=== PATIENT | female | born 1980 | race Caucasian/White ===

== ENCOUNTER 2017-02-28 06:16 | Day surgery (SDC) | payer BC ==
[2017-02-25 12:23] VITALS: BMI 34.0
[2017-02-28] VITALS (11 sets, daily range): BP systolic 99–121; BP diastolic 54–78; PULSE 84–100; RESP 9–18; Ht 160 cm; Wt 105.1 kg
[~2017-02-28] VITALS: Ht 160 cm; Wt 105.1 kg
[2017-02-28] MEDS ORDERED: CEFAZOLIN 2 GM/50 ML (PMX) 50 ML IVPB ONE (06:30)
[2017-02-28] MEDS ORDERED: SOD CHLORIDE 0.9% 1,000 ML IV ONE (06:30)
[2017-02-28] MEDS ORDERED: BUPIVACAINE 0.25% (MPF) 30 ML INJ ONE (08:55)
[2017-02-28] MEDS ORDERED: FENTAnyl 50 MCG/ML VIAL ONE ×2 (09:06→09:27)
[2017-02-28] MEDS ORDERED: MIDAZOLAM 1 MG/ML 2 ML INJ ONE (09:27)
[2017-02-28] MEDS ORDERED: LIDOCAINE 2% (SDV) 5 ML INJ ONE (09:38)
[2017-02-28] MEDS ORDERED: CEFAZOLIN 1 GM INJ ONE (09:38)
[2017-02-28] MEDS ORDERED: PROPOFOL 20 ML ONE (09:38)
--- NOTE | 2017-02-28 09:38 | OPR ---
Date/Time of Note Date/Time of Note DATE: 02/28/17 TIME: 09:32 Operative Report Procedure Date: Feb 28, 2017 Preoperative Diagnosis chest mass Postoperative Diagnosis same Operation Performed excision of chest mass 3 cm incision and 3 x 2 cm mass localized adjacent tissue transfer with the use of skin flaps 6 sq cm defect therapeutic injection of subcutaneous marcaine Surgeon: Debi MOE Specimens chest mass Procedure Description patient is taken to the OR and prepped and draped in the usual sterile fashion. surgical time out is performed iv antibiotics are given. elliptical incision if made over the chest with a 15 blade. the mass is circumferentially excised with dissection cauterie. there is good hemostasis. due to the tissue defect localized adjacent tissue transfer with the use of skin flaps is performed. closure with interrupted 3-0 vicryl and skin kary. therapeutic injection of subcutaneous marcaine is applied. dry dressing is applied. Debi MOE Feb 28, 2017 09:38
[2017-02-28] MEDS ORDERED: ONDANSETRON 4 MG INJ IV PRN (10:00)
[2017-02-28] MEDS ORDERED: HYDROCODONE/APAP (5/325) TAB PO ONE (10:00)
[2017-02-28] MEDS ORDERED: MEPERIDINE 25 MG INJ IV PRN (10:00)
[2017-02-28] MEDS ORDERED: DIPHENHYDRAMINE 50 MG INJ IV PRN (10:00)
[2017-02-28] MEDS: FENTAnyl 50 MCG/ML VIAL IV PRN ×2 (10:02→10:09)
== END 2017-02-28 11:10 | disposition home or self-care (01) ==
LOC: SDS 06:16
PROVIDERS: ATTEND Surgery
DX: L72.0 Epidermal cyst (principal); E66.01 Morbid (severe) obesity due to excess calories; Z68.41 Body mass index [BMI] 40.0-44.9, adult
CPT/HCPCS: 14000; 84703; 88307; J0690; J2250; J3010; Z7512; Z7610